=== PATIENT | male | born 1985 | race Caucasian/White ===

== ENCOUNTER 2025-07-26 01:32 | Emergency (ER) | payer MEDICAID ==
[~2025-07-26] VITALS: Ht 172.7 cm; Wt 88.2 kg
[2025-07-26 01:47] VITALS: TEMP 36.8; O2SAT 96
[2025-07-26 03:06] VITALS: BP 138/89; PULSE 71; RESP 18; O2SAT 99
== END 2025-07-26 03:08 | disposition home or self-care (01) ==
LOC: ER 01:32
DX: R59.1 Generalized enlarged lymph nodes (principal)
CPT/HCPCS: 99282